=== PATIENT | male | born 1970 | race Caucasian/White ===

== ENCOUNTER → 2017-08-17 | Outpatient (CLI) | payer OTHER ==
[~2017-08-17] MED LIST: ASA; FLEXERIL5 MG PO; NEXIUM40 MG; PRIMATENE0.22 MG/AC IH; PROTONIX40 MG PO; SINGULAIR10 MG; VICODIN 5/500 505 MG PO; VOLTAREN50 M1 PO; ZOFRAN ODT4 MG SL; [UNRECOGNIZED DRUG - OTHER]; [UNRECOGNIZED DRUG - OTHER] PO
[2017-08-17 04:33] LABS: HEMATOCRIT 40.4 % (42.0-52.0); HEMOGLOBIN 14.1 g/dl (14.0-18.0); MEAN CELL VOLUME 91.6 fl (80.0-94.0); MEAN CORPUSCULAR HGB CONC 34.9 g/dl (33.0-37.0); RED BLOOD COUNT 4.41 10*6/uL (4.50-5.90)
[2017-08-17 05:03] LABS: ALKALINE PHOSPHATASE 59 U/L (45-117); BUN 11 mg/dl (7-24); CHLORIDE 101 mmol/L (98-107); CHOLESTEROL 177 mg/dL (<200); HDL CHOLESTEROL 36 mg/dl (40-60); LDL CHOLESTEROL 119 mg/dL (9-159); POTASSIUM 4.1 mmol/L (3.5-5.1); SGOT/AST 25 IU/L (3-35); SGPT/ALT 38 U/L (12-78); SODIUM 138 mmol/L (136-145); TOTAL PROTEIN 7.7 gm/dL (6.4-8.2); TRIGLYCERIDES 109 mg/dl (<150); VLDL CHOLESTEROL 22 mg/dL (6-40)
== END | disposition home or self-care (01) ==
LOC: LAB 04:15
PROVIDERS: Family Medicine
DX: E78.00 Pure hypercholesterolemia, unspecified (principal); R53.83 Other fatigue; R63.5 Abnormal weight gain; E76.9 Glucosaminoglycan metabolism disorder, unspecified; E55.9 Vitamin D deficiency, unspecified

== ENCOUNTER → 2018-12-10 | Outpatient (CLI) | payer OTHER ==
[2018-12-10 05:41] LABS: ALBUMIN 3.9 gm/dl (3.1-4.5); ALKALINE PHOSPHATASE 70 U/L (45-117); BUN 20 mg/dl (7-24); CHLORIDE 103 mmol/L (98-107); CHOLESTEROL 152 mg/dL (<200); CREATININE 1.41 mg/dL (0.70-1.30); HDL CHOLESTEROL 26 mg/dl (40-60); LDL CHOLESTEROL 90 mg/dL (9-159); SGOT/AST 25 IU/L (3-35); SGPT/ALT 50 U/L (12-78); SODIUM 139 mmol/L (136-145); TRIGLYCERIDES 181 mg/dl (<150); VLDL CHOLESTEROL 36 mg/dL (6-40)
[2018-12-10 06:21] LABS: HEMATOCRIT 43.7 % (42.0-52.0); HEMOGLOBIN 14.7 g/dl (14.0-18.0); MEAN CELL VOLUME 92.6 fl (80.0-94.0); MEAN CORPUSCULAR HGB 31.1 pg (27.0-31.0); MEAN CORPUSCULAR HGB CONC 33.6 g/dl (33.0-37.0); MEAN PLATELET VOLUME 9.5 fl (9.6-12.3); RED BLOOD COUNT 4.72 10*6/uL (4.50-5.90); RED CELL DISTRI WIDTH 13.1 % (0-14.5); WHITE BLOOD COUNT 5.7 10*3/uL (4.8-10.8)
== END | disposition home or self-care (01) ==
LOC: LAB 04:45
PROVIDERS: Family Medicine
DX: Z12.5 Encounter for screening for malignant neoplasm of prostate (principal); Z13.220 Encounter for screening for lipoid disorders; E55.9 Vitamin D deficiency, unspecified; M19.90 Unspecified osteoarthritis, unspecified site

== ENCOUNTER → 2021-09-20 | Outpatient (CLI) | payer BC ==
[2021-09-20 09:23] LABS: HEMATOCRIT 42.4 % (42.0-52.0); MEAN CELL VOLUME 91.6 fl (80.0-94.0); MEAN CORPUSCULAR HGB 30.9 pg (27.0-31.0); MEAN CORPUSCULAR HGB CONC 33.7 g/dl (33.0-37.0); MEAN PLATELET VOLUME 9.2 fl (9.6-12.3); RED BLOOD COUNT 4.63 10*6/uL (4.50-5.90); RED CELL DISTRI WIDTH 12.8 % (0-14.5); WHITE BLOOD COUNT 5.1 10*3/uL (4.8-10.8)
[2021-09-20 09:43] LABS: ALBUMIN 3.5 gm/dl (3.1-4.5); BUN 10 mg/dl (7-24); CHLORIDE 105 mmol/L (98-107); CHOLESTEROL 136 mg/dL (<200); CREATININE 1.09 mg/dL (0.70-1.30); POTASSIUM 4.7 mmol/L (3.5-5.1); SGOT/AST 21 IU/L (3-35); SGPT/ALT 56 U/L (12-78); SODIUM 140 mmol/L (136-145); TRIGLYCERIDES 206 mg/dl (<150)
[2021-09-20 09:47] LABS: ALKALINE PHOSPHATASE 73 U/L (45-117); LDL CHOLESTEROL 67 mg/dL (9-159); TOTAL PROTEIN 7.6 gm/dL (6.4-8.2)
== END | disposition home or self-care (01) ==
LOC: LAB 08:35
PROVIDERS: ATTEND Family Medicine
DX: Z00.00 Encounter for general adult medical examination without abnormal findings (principal); Z12.5 Encounter for screening for malignant neoplasm of prostate